=== PATIENT | male | born 1965 | race Caucasian/White ===

== ENCOUNTER 2020-09-30 05:39 | Emergency (ER) | payer SELFPAY ==
[~2020-09-30] VITALS: Ht 182.9 cm; Wt 97.5 kg
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
--- NOTE | 2020-09-30 06:03 | NUR ---
PATIENT'S BLOOD IS COLLECTED AND SENT TO THE LAB.
--- NOTE | 2020-09-30 06:07 | NUR ---
XRAY AT BEDSIDE.
--- NOTE | 2020-09-30 06:13 | NUR ---
PATIENT TAKEN TO CT.
[2020-09-30 06:16] LABS: BASOPHILS % (AUTO) 0.1 % (0.0-2.0); EOSINOPHILS % (AUTO) 0.1 % (0.0-6.0); HEMATOCRIT 39 % (39-51); HEMOGLOBIN 13.4 g/dL (13.5-17.5); LYMPHOCYTES # (AUTO) 1.1 /CMM (0.8-4.8); LYMPHOCYTES % (AUTO) 16.9 % (20.0-44.0); MEAN CORPUSCULAR HGB CONC 34 g/dl (31.0-36.0); MEAN CORPUSCULAR VOLUME 94 fL (80-96); MONOCYTES # (AUTO) 0.5 /CMM (0.1-1.30); MONOCYTES % (AUTO) 8.5 % (2.0-12.0); NEUTROPHILS # (AUTO) 4.8 /CMM (1.8-8.9); NEUTROPHILS % (AUTO) 74.4 % (43.0-81.0); PLATELET COUNT (AUTO) 120 /CMM (150-450); RED BLOOD CELL COUNT(AUTO) 4.17 MIL/uL (4.5-6.0); WHITE BLOOD COUNT (AUTO) 6.5 K/uL (4.3-11.0)
[2020-09-30 06:37] LABS: CALCIUM, SERUM 7.9 mg/dL (8.5-10.1); CARBON DIOXIDE 21 mmol/L (21-32); CHLORIDE 108 mmol/L (98-107); CREATININE 0.9 mg/dL (0.6-1.3); GLUCOSE 122 mg/dL (74-106); POTASSIUM 3.6 mmol/L (3.5-5.1); SODIUM SERUM 140 mmol/L (136-145); UREA NITROGEN, BLOOD 14 mg/dL (7-18)
[2020-09-30 06:43] LABS: ALANINE AMINOTRANSFERASE 36 U/L (12-78); ALBUMIN 2.9 g/dL (3.4-5.0); ALKALINE PHOSPHATASE 61 U/L (46-116); ASPARTATE AMINOTRANSFERASE 33 U/L (15-37); BILIRUBIN,DIRECT 0.4 mg/dL (0.0-0.2); BILIRUBIN,TOTAL 0.8 mg/dL (0.2-1.0); TOTAL PROTEIN, SERUM 6.4 g/dL (6.4-8.2)
--- NOTE | 2020-09-30 06:49 | NUR ---
COVID SWAB PCR SAMPLE COLLECTED AND SENT TO THE LAB.
[2020-09-30] MEDS ORDERED: IV NS 0.9% 1,000 ML BAG IV ONE (07:30)
--- NOTE | 2020-09-30 08:02 | NUR ---
REPORT GIVEN TO ABELARDO GUPTA FOR LESLI.
--- NOTE | 2020-09-30 09:00 | NUR ---
PATIENT A/OX4, BREATHING EVEN AND UNLABORED, NO SOB NOTED. NEEDS ATTENDED.
[2020-09-30] MEDS ORDERED: IV NS 0.9% 250 ML IV ONE (09:06)
[2020-09-30] MEDS ORDERED: IOHEXOL-350 100 ML VIAL IV ONE (09:06)
--- NOTE | 2020-09-30 10:48 | NUR ---
PATIENT A/OX4, BREATHING EVEN AND UNLABORED, STS HE FEELS BETTER. DENIES PAIN AT THIS TIME. NEEDS ATTENDED. IV removed. Catheter intact and site benign. Pressure and 4x4 applied to site. No bleeding noted. Patient discharged to home in stable condition. Written and verbal after care instructions given. Patient verbalizes understanding of instruction.
[2020-09-30 10:49] VITALS: BP 109/64
== END 2020-09-30 10:50 | disposition home or self-care (01) ==
LOC: ER 05:39
DX: U07.1 COVID-19 (principal); R55 Syncope and collapse; I95.9 Hypotension, unspecified; Z86.711 Personal history of pulmonary embolism; Z82.49 Family history of ischemic heart disease and other diseases of the circulatory system; Z90.49 Acquired absence of other specified parts of digestive tract
CPT/HCPCS: 36415; 70450; 71045; 71275; 80048; 80076; 84484; 85025; 85730; 93005; 96360; 99285; C9803; J7030; J7050; Q9967; U0003